=== PATIENT | male | born 2000 | race Caucasian/White ===

== ENCOUNTER 2020-01-16 14:12 | Emergency (ER) | payer OTHER ==
[~2020-01-16] VITALS: Ht 172.7 cm; Wt 79.5 kg
[2020-01-16 14:22] VITALS: BP 132/74
== END 2020-01-16 15:52 | disposition home or self-care (01) ==
LOC: EMS 14:29
DX: R05 Cough (principal); Z20.828 Contact with and (suspected) exposure to other viral communicable diseases
CPT/HCPCS: 87635

== ENCOUNTER 2020-05-11 19:21 | Emergency (ER) | payer OTHER ==
[~2020-05-11] VITALS: Ht 176.5 cm; Wt 69.5 kg
[2020-05-11 22:18] VITALS: BP 130/18
[2020-05-11] MEDS ORDERED: IBUPROFEN 600 MG TABLET PO ONE (23:30)
[2020-05-11] MEDS ORDERED: DOXYCYCLINE HYCLATE 100 MG TABLET PO ONE (23:30)
== END 2020-05-11 23:45 | disposition home or self-care (01) ==
LOC: EMS 19:26
DX: L03.114 Cellulitis of left upper limb (principal); M79.89 Other specified soft tissue disorders; J45.909 Unspecified asthma, uncomplicated